=== PATIENT | female | born 1935 | race Caucasian/White ===

== ENCOUNTER 2019-05-13 15:38 | Outpatient (CLI) | payer MEDICARE, SELFPAY ==
[2019-05-13 15:57] LABS: Basophils Absolute Auto 0.03 K/mm3 (0.00-0.10); Basophils Percent Auto 0.3 % (0.0-1.0); Eosinophils Absolute Auto 0.32 K/mm3 (0.02-0.50); Eosinophils Percent Auto 3.4 % (1.0-6.0); Hematocrit 44.4 % (35.0-42.0); Hemoglobin 14.3 g/dL (11.7-13.8); Immature Granulocyte Absolute 0.03 K/mm3 (0.00-0.00); Immature Granulocyte Percent A 0.3 % (0.0-0.0); Lymphocytes Absolute Auto 2.03 K/mm3 (1.10-4.50); Lymphocytes Percent Auto 21.8 % (18.0-42.0); Mean Corpuscular HGB Conc 32.2 g/dL (32.0-36.0); Mean Corpuscular Hemoglobin 30.4 pg (27.0-31.0); Mean Corpuscular Volume 94.5 fL (78.0-102.0); Mean Platelet Volume 10.2 fl (9.2-11.8); Monocytes Absolute Auto 0.84 K/mm3 (0.10-0.90); Neutrophils Absolute Auto 6.1 K/mm3 (1.7-7.2); Neutrophils Percent Auto 65.2 % (50.0-70.0); Platelet Count Result 191 K/mm3 (150-420); Red Cell Distribution Width 14.1 % (11.6-14.4); White Blood Count 9.3 K/mm3 (4.8-10.8)
[2019-05-13 16:51] LABS: Ferritin 93 ng/mL (8-252); Iron 46 ug/dL (50-170); Percent Iron Saturation 13 % (12-57)
== END 2019-05-13 15:39 | disposition home or self-care (01) ==
LOC: CHSLAB 15:44
PROVIDERS: PCP Internal Medicine; Visit Provider Internal Medicine
DX: D50.9 Iron deficiency anemia, unspecified (principal)
CPT/HCPCS: 36415; 82728; 83540; 83550; 85025

== ENCOUNTER 2019-06-30 08:17 | Outpatient (CLI) | payer MEDICARE, SELFPAY ==
[2019-06-30 08:34] LABS: Basophils Absolute Auto 0.05 K/mm3 (0.00-0.10); Basophils Percent Auto 0.6 % (0.0-1.0); Eosinophils Absolute Auto 0.24 K/mm3 (0.02-0.50); Eosinophils Percent Auto 2.9 % (1.0-6.0); Hematocrit 47.6 % (35.0-42.0); Hemoglobin 15.4 g/dL (11.7-13.8); Immature Granulocyte Absolute 0.03 K/mm3 (0.00-0.00); Immature Granulocyte Percent A 0.4 % (0.0-0.0); Lymphocytes Absolute Auto 1.53 K/mm3 (1.10-4.50); Lymphocytes Percent Auto 18.3 % (18.0-42.0); Mean Corpuscular HGB Conc 32.4 g/dL (32.0-36.0); Mean Corpuscular Hemoglobin 30.7 pg (27.0-31.0); Mean Corpuscular Volume 94.8 fL (78.0-102.0); Mean Platelet Volume 10.2 fl (9.2-11.8); Monocytes Absolute Auto 0.84 K/mm3 (0.10-0.90); Neutrophils Absolute Auto 5.7 K/mm3 (1.7-7.2); Neutrophils Percent Auto 67.8 % (50.0-70.0); Platelet Count Result 182 K/mm3 (150-420); Red Blood Count 5.02 M/mm3 (4.20-5.40); White Blood Count 8.4 K/mm3 (4.8-10.8)
[2019-06-30 08:37] LABS: Add Urine Microscopic? YES; Appearance Urine Clear (Clear); Bilirubin Urine Negative (Negative); Blood Urine 2+ (Negative); Color Urine Yellow (Yellow); Glucose Urine UA Negative (Negative); Ketones Urine Negative (Negative); Leukocyte Esterase Ur Trace (Negative); Nitrate Urine Negative (Negative); Protein Urine Negative (Negative); Specific Grav Ur 1.015 (1.010-1.020); Urobilinogen Urine 0.2 mg/dL (0.2-1.0)
[2019-06-30 08:45] LABS: Hemoglobin A1C 5.7 % (<5.7)
[2019-06-30 08:48] LABS: Bacteria Urine 1+ /hpf; Squamous Epithelial Cell Urine Few /hpf (Few); WBC Urine 0-3 /hpf (0-3)
[2019-06-30 09:33] LABS: Alanine Aminotransferase 23 U/L (14-59); Albumin Level 3.9 g/dL (3.4-5.0); Alkaline Phosphatase 101 U/L (46-116); Aspartate Amino Transferase 20 U/L (15-37); Bilirubin,Total 0.7 mg/dL (0.00-1.00); Blood Urea Nitrogen 12 mg/dL (7-18); Calcium 9.7 mg/dL (8.5-10.1); Carbon Dioxide 35 mmol/L (21-32); Chloride 102 mmol/L (98-108); Cholesterol 185 mg/dL (0-200); Estimated Glomerular Filt Rate > 60; Free T3 2.56 pg/mL (2.18-3.98); Free T4 Free Thyroxine 1.43 ng/dL (0.76-1.46); Glucose 88 mg/dL (70-99); HDL Direct 46 mg/dL (40-60); LDL Cholesterol Calculated 120 mg/dL (<130); Osmolality Calculated 298 mOsm/kg (285-295); Sodium 145 mmol/L (136-145); Thyroid Stimulating Hormone 3.03 uIU/mL (0.36-3.74); Total Protein 6.9 g/dL (6.4-8.2); Triglycerides 94 mg/dL (0-150)
== END 2019-06-30 08:18 | disposition home or self-care (01) ==
LOC: CHSLAB 08:20
PROVIDERS: PCP Internal Medicine; Visit Provider Internal Medicine
DX: E03.4 Atrophy of thyroid (acquired) (principal); I10 Essential (primary) hypertension; E78.2 Mixed hyperlipidemia; R73.01 Impaired fasting glucose; E61.1 Iron deficiency
CPT/HCPCS: 36415; 80053; 80061; 81001; 83036; 84439; 84443; 84481; 85025

== ENCOUNTER 2019-07-06 08:10 | Outpatient (CLI) | payer MEDICARE, SELFPAY ==
--- NOTE | ~2019-07-06 | US_ITS ---
US retroperitoneal comp 07/06/2019 09:02 Procedure: Realtime transabdominal ultrasound of the kidneys and bladder. Indication: Hematuria Comparison: CT dated 07/21/2014 Findings: Renal echotexture is normal bilaterally without hydronephrosis, contour deforming mass. The re are echogenic foci in both kidneys, likely nonobstructing renal stones. There are bilateral renal cysts, largest on the right measuring 8 mm and on the left measuring 1.3 cm. The right kidney measure s 9.3 cm and left kidney measures 10.9 cm. Bladder within normal limits. Impression: 1: Bilateral echogenic foci without hydronephrosis, likely nonobstructing stones. 2: Bilateral renal cysts. Reviewed, dictated and finalized at location A. Impression: 1: Bilateral echogenic foci without hydronephrosis, likely nonobstructing stone s. 2: Bilateral renal cysts.
== END 2019-07-06 08:11 | disposition home or self-care (01) ==
PROVIDERS: PCP Internal Medicine; Visit Provider Internal Medicine
DX: R31.9 Hematuria, unspecified (principal)
CPT/HCPCS: 76770

== ENCOUNTER 2019-12-30 07:48 | Outpatient (CLI) | payer MEDICARE, SELFPAY ==
[2019-12-30 08:06] LABS: Basophils Absolute Auto 0.03 K/mm3 (0.00-0.10); Basophils Percent Auto 0.4 % (0.0-1.0); Eosinophils Absolute Auto 0.26 K/mm3 (0.02-0.50); Eosinophils Percent Auto 3.5 % (1.0-6.0); Hematocrit 46.9 % (35.0-42.0); Immature Granulocyte Absolute 0.03 K/mm3 (0.00-0.00); Immature Granulocyte Percent A 0.4 % (0.0-0.0); Lymphocytes Percent Auto 20.1 % (18.0-42.0); Mean Corpuscular Hemoglobin 30.4 pg (27.0-31.0); Mean Corpuscular Volume 94.9 fL (78.0-102.0); Mean Platelet Volume 9.8 fl (9.2-11.8); Monocytes Absolute Auto 0.67 K/mm3 (0.10-0.90); Neutrophils Percent Auto 66.6 % (50.0-70.0); Platelet Count Result 187 K/mm3 (150-420); Red Blood Count 4.94 M/mm3 (4.20-5.40); Red Cell Distribution Width 13.4 % (11.6-14.4); White Blood Count 7.5 K/mm3 (4.8-10.8)
[2019-12-30 08:07] LABS: Add Urine Microscopic? YES; Appearance Urine Clear (Clear); Bilirubin Urine Negative (Negative); Blood Urine Negative (Negative); Color Urine Yellow (Yellow); Glucose Urine UA Negative (Negative); Ketones Urine Negative (Negative); Leukocyte Esterase Ur Trace LEU/UL (Negative); Nitrate Urine Negative (Negative); Protein Urine Negative (Negative); Urobilinogen Urine 0.2 mg/dL (0.2-1.0); pH Urine 7.5 (5.0-8.0)
[2019-12-30 08:11] LABS: Bacteria Urine Trace /hpf; RBC Urine 0-2 /hpf (0-2); Squamous Epithelial Cell Urine Few /hpf (Few); WBC Urine 0-3 /hpf (0-3)
[2019-12-30 08:25] LABS: Creatinine Urine 42.07 mg/dL (40-278); MALB Creatinine Ratio 54.9 mg/g (0-30); Microalbumin Urine Random 23.1 mg/L
[2019-12-30 08:44] LABS: Hemoglobin A1C 5.7 % (<5.7)
[2019-12-30 08:57] LABS: Alanine Aminotransferase 26 U/L (14-59); Albumin Level 3.9 g/dL (3.4-5.0); Alkaline Phosphatase 110 U/L (46-116); Anion Gap 7 mmol/L (8-16); Aspartate Amino Transferase 30 U/L (15-37); Bilirubin,Total 0.5 mg/dL (0.00-1.00); Blood Urea Nitrogen 14 mg/dL (7-18); Calcium 9.6 mg/dL (8.5-10.1); Carbon Dioxide 33 mmol/L (21-32); Chloride 101 mmol/L (98-108); Cholesterol 199 mg/dL (0-200); Creatine Kinase 82 U/L (26-192); Estimated Glomerular Filt Rate > 60; Ferritin 96 ng/mL (8-252); Free T3 2.31 pg/mL (2.18-3.98); Free T4 Free Thyroxine 1.15 ng/dL (0.76-1.46); Glucose 91 mg/dL (70-99); HDL Direct 50 mg/dL (40-60); Iron 157 ug/dL (50-170); LDL Cholesterol Calculated 126 mg/dL (<130); Osmolality Calculated 292 mOsm/kg (285-295); Percent Iron Saturation 44 % (12-57); Potassium 3.9 mmol/L (3.5-5.1); Sodium 141 mmol/L (136-145); Thyroid Stimulating Hormone 3.73 uIU/mL (0.36-3.74); Total Protein 7.2 g/dL (6.4-8.2); Triglycerides 116 mg/dL (0-150)
== END 2019-12-30 07:49 | disposition home or self-care (01) ==
LOC: CHSLAB 07:49
PROVIDERS: PCP Internal Medicine; Visit Provider Internal Medicine
DX: E78.5 Hyperlipidemia, unspecified (principal); I10 Essential (primary) hypertension; R73.01 Impaired fasting glucose; E03.4 Atrophy of thyroid (acquired); E61.1 Iron deficiency; R31.21 Asymptomatic microscopic hematuria
CPT/HCPCS: 36415; 80053; 80061; 81001; 82043; 82550; 82728; 83036; 83540; 83550; 84439; 84443; 84481; 85025

== ENCOUNTER 2020-03-20 15:36 | Outpatient (CLI) | payer MEDICARE, SELFPAY ==
--- NOTE | ~2020-03-20 | XR_ITS ---
EXAMINATION: XR foot LT min 3V DATE: 03/20/2020 16:04 INDICATION: Left foot pain post injury TECHNIQUE: Dorsoplantar, two oblique and lateral views of the left foot were obtained. COMPARISON: None. FINDINGS: 1-2 mm wide lucent intra-articular fracture plane extending across the lateral base of the fifth meta tarsal with no significant displacement. No other fractures identified. Interval progression of moder ate hallux valgus. Polyarticular osteoarthritis, moderate severity at the second tarsal metatarsal onel int and mild at many of the remaining joints about the left foot and at the left ankle. IMPRESSION: 1. Minimally displaced intra-articular fracture at the lateral base of the left fifth metatarsal Reviewed, dictated and finalized at location A. ING MACHINE OPERATOR
== END 2020-03-20 15:37 | disposition home or self-care (01) ==
LOC: CHSLAB 15:40
PROVIDERS: PCP Internal Medicine; Visit Provider Internal Medicine
DX: M79.672 Pain in left foot (principal)
CPT/HCPCS: 73630

== ENCOUNTER 2020-04-18 09:22 | Outpatient (CLI) | payer MEDICARE, SELFPAY ==
--- NOTE | ~2020-04-18 | XR_ITS ---
EXAMINATION: XR foot LT min 3V DATE: 04/18/2020 09:58 INDICATION: Left foot pain, follow-up TECHNIQUE: Dorsoplantar, lateral, and 2 oblique views of the left foot were obtained. COMPARISON: 03/20/2020 FINDINGS: Again seen is an oblique intra-articular fracture at the lateral base of the fifth metatars al. There appears to be slight widening at the fracture site compared to the prior examination. A sma ll amount of calcified callus has developed at the fracture site. No additional acute osseous finding s are evident. Polyarticular osteoarthritis is again noted. There is soft tissue swelling of the late ral midfoot. IMPRESSION: 1. Oblique intra-articular fracture at the lateral base of the fifth metatarsal with slight interval widening at the fracture site and small amount of calcified callus. Reviewed, dictated and finalized at location A. CY CHECKER IMPRESSION: 1. Oblique intra-articular fracture at the lateral base of the fifth metatarsal with slight interval widening at the fracture site and small amount of calcifi ed callus.
== END 2020-04-18 09:23 | disposition home or self-care (01) ==
LOC: CHSIMG 09:25
PROVIDERS: PCP Internal Medicine; Visit Provider Internal Medicine
DX: S92.355D Nondisplaced fracture of fifth metatarsal bone, left foot, subsequent encounter for fracture with routine healing (principal)
CPT/HCPCS: 73630

== ENCOUNTER 2020-05-30 12:20 | Outpatient (CLI) | payer MEDICARE, SELFPAY ==
--- NOTE | ~2020-05-30 | XR_ITS ---
XR foot LT min 3V DATE: 05/30/2020 12:48 INDICATION: Fifth metatarsal fracture TECHNIQUE: 4 views COMPARISON: April 18, 2020 left foot March 20, 2020 left foot FINDINGS: Oblique intra-articular fracture of the base of the fifth metatarsal bone is noted. There i s mild widening at the nonarticular fracture margin; otherwise no significant change in position or a lignment. The fracture line is still readily evident. No effective bony bridging across the fracture site is identified. Hallux valgus and bunion deformity. Mild osteoarthritis at the first metatarsophalangeal joint. Osteopenia. IMPRESSION: Slight widening at the fracture site with limited new bone formation or significant heali ng since prior examination Reviewed, dictated and finalized at location B. IMPRESSION: Slight widening at the fracture site with limited new bone formatio n or significant healing since prior examination
== END 2020-05-30 12:21 | disposition home or self-care (01) ==
PROVIDERS: PCP Internal Medicine; Visit Provider Internal Medicine
DX: S92.352D Displaced fracture of fifth metatarsal bone, left foot, subsequent encounter for fracture with routine healing (principal)
CPT/HCPCS: 73630

== ENCOUNTER 2020-06-29 07:13 | Outpatient (CLI) | payer MEDICARE, SELFPAY ==
[2020-06-29 07:30] LABS: Basophils Absolute Auto 0.04 K/mm3 (0.00-0.10); Basophils Percent Auto 0.7 % (0.0-1.0); Eosinophils Percent Auto 3.4 % (1.0-6.0); Hematocrit 45.4 % (35.0-42.0); Hemoglobin 14.5 g/dL (11.7-13.8); Immature Granulocyte Absolute 0.02 K/mm3 (0.00-0.00); Immature Granulocyte Percent A 0.3 % (0.0-0.0); Lymphocytes Absolute Auto 1.12 K/mm3 (1.10-4.50); Lymphocytes Percent Auto 18.8 % (18.0-42.0); Mean Corpuscular HGB Conc 31.9 g/dL (32.0-36.0); Mean Corpuscular Hemoglobin 29.6 pg (27.0-31.0); Mean Corpuscular Volume 92.7 fL (78.0-102.0); Mean Platelet Volume 10.4 fl (9.2-11.8); Monocytes Percent Auto 8.4 % (2.0-11.0); Neutrophils Absolute Auto 4.1 K/mm3 (1.7-7.2); Neutrophils Percent Auto 68.4 % (50.0-70.0); Platelet Count Result 174 K/mm3 (150-420); Red Cell Distribution Width 13.4 % (11.6-14.4)
[2020-06-29 07:35] LABS: Add Urine Microscopic? YES; Appearance Urine Clear (Clear); Bilirubin Urine Negative (Negative); Blood Urine Negative (Negative); Color Urine Yellow (Yellow); Glucose Urine UA Negative (Negative); Ketones Urine Negative (Negative); Leukocyte Esterase Ur 1+ (Negative); Nitrate Urine Negative (Negative); Protein Urine Negative (Negative); Urobilinogen Urine 0.2 mg/dL (0.2-1.0)
[2020-06-29 07:46] LABS: Creatinine Urine 76.11 mg/dL (40-278); MALB Creatinine Ratio 73.9 mg/g (0-30); Microalbumin Urine Random 56.3 mg/L
[2020-06-29 07:47] LABS: Bacteria Urine Trace /hpf; RBC Urine None seen /hpf (0-2); Squamous Epithelial Cell Urine Few /hpf (Few)
[2020-06-29 07:49] LABS: Hemoglobin A1C 5.9 % (<5.7)
[2020-06-29 08:27] LABS: Alanine Aminotransferase 23 U/L (14-59); Albumin Level 3.7 g/dL (3.4-5.0); Alkaline Phosphatase 110 U/L (46-116); Anion Gap 6 mmol/L (8-16); Aspartate Amino Transferase 15 U/L (15-37); Bilirubin,Total 0.7 mg/dL (0.00-1.00); Blood Urea Nitrogen 13 mg/dL (7-18); Calcium 9.7 mg/dL (8.5-10.1); Carbon Dioxide 34 mmol/L (21-32); Chloride 103 mmol/L (98-108); Cholesterol 162 mg/dL (0-200); Creatine Kinase 74 U/L (26-192); Estimated Glomerular Filt Rate > 60; Ferritin 82 ng/mL (8-252); Free T3 2.27 pg/mL (2.18-3.98); Free T4 Free Thyroxine 1.27 ng/dL (0.76-1.46); Glucose 97 mg/dL (70-99); HDL Direct 46 mg/dL (40-60); Iron 77 ug/dL (50-170); LDL Cholesterol Calculated 101 mg/dL (<130); Osmolality Calculated 296 mOsm/kg (285-295); Percent Iron Saturation 22 % (12-57); Potassium 3.7 mmol/L (3.5-5.1); Sodium 143 mmol/L (136-145); Thyroid Stimulating Hormone 3.04 uIU/mL (0.36-3.74); Total Protein 6.9 g/dL (6.4-8.2); Triglycerides 76 mg/dL (0-150)
== END 2020-06-29 07:14 | disposition home or self-care (01) ==
LOC: CHSLAB 07:15
PROVIDERS: PCP Internal Medicine; Visit Provider Internal Medicine
DX: E03.4 Atrophy of thyroid (acquired) (principal); I10 Essential (primary) hypertension; E78.2 Mixed hyperlipidemia; E61.1 Iron deficiency; R73.01 Impaired fasting glucose
CPT/HCPCS: 36415; 80053; 80061; 81001; 82043; 82550; 82728; 83036; 83540; 83550; 84439; 84443; 84481; 85025

== ENCOUNTER 2020-07-04 13:47 | Outpatient (CLI) | payer MEDICARE, SELFPAY ==
--- NOTE | ~2020-07-04 | XR_ITS ---
EXAMINATION: XR foot LT min 3V DATE: 07/04/2020 14:15 INDICATION: Follow-up left foot fracture post fall TECHNIQUE: Dorsoplantar, two oblique and lateral views of the left foot were obtained. COMPARISON: Radiographs dated between 05/30/2020 and 03/20/2020 FINDINGS: Again seen is an intra-articular fracture at the lateral base of the left fifth metatarsal. Unchanged mild distraction with approximately 3 mm lucent fracture gap. There is however decreasing lucency al aleksandar the fracture gap consistent with interval healing. No other fractures identified. Mild hallux loly josh with mild to moderate osteoarthritis at the first metatarsophalangeal joint. Mild osteoarthritis at several tarsal metatarsal and interphalangeal joints. Osteopenia. IMPRESSION: 1. Decreasing lucency along a minimally distracted intra-articular fracture at the lateral base of th e left fifth metatarsal suggesting some interval healing. Reviewed, dictated and finalized at location A. IMPRESSION: 1. Decreasing lucency along a minimally distracted intra-articular fracture at the lateral base of the left fifth metatarsal suggesting some interval healing.
== END 2020-07-04 13:48 | disposition home or self-care (01) ==
LOC: CHSIMG 13:49
PROVIDERS: PCP Internal Medicine; Visit Provider Internal Medicine
DX: S92.355D Nondisplaced fracture of fifth metatarsal bone, left foot, subsequent encounter for fracture with routine healing (principal)
CPT/HCPCS: 73630

== ENCOUNTER 2020-08-30 07:32 | Outpatient (CLI) | payer MEDICARE, SELFPAY ==
--- NOTE | ~2020-08-30 | CT_ITS ---
EXAMINATION: CT abdomen pelvis w con INDICATION: Abdominal pain, hematuria TECHNIQUE: Computed tomographic images of the abdomen and pelvis were obtained after the administrati on of 100 cc of Omnipaque 350 intravenous contrast. The dose-length product (DLP) was 760.19 mGy-cm. Automated exposure control and iterative reconstruction technique were employed. COMPARISON: 07/21/2014 FINDINGS: Minimal dependent atelectasis is present in the lung bases. Cardiomegaly is noted. The live r, spleen, and pancreas are normal. There is mild chronic thickening of the adrenal glands which main tain their adreniform shape. Stones are present in the nondistended gallbladder. Stones measuring 6 m m and 7 mm are present left renal pelvis. There are stones measuring up to 6 mm and lower pole calyce s of the right kidney. Multiple nonobstructing stones are present in the kidneys which measure up to 4 mm on the remaining and 5 mm on the left. Cysts of the kidneys measure up to 8 mm on the left. Ther e are soft tissue attenuation lesions of the kidneys in the lower pole on the right (10 mm) the upper pole on the left (13 mm), and the interpolar region of the left kidney (19 mm). There is calcified a therosclerosis of the aorta and many of the other arteries. No pathologically enlarged abdominal or p elvic lymph nodes are identified. There is no free intraperitoneal gas or evidence of bowel obstructi on. There is severe lumbar spondylosis. A calcified uterine fibroid is noted. IMPRESSION: 1. Stones in the left renal pelvis and lower pole calyces of the right kidney. Bilateral nephrolithia sis. 2. Bilateral indeterminate kidney masses. Follow-up by MRI or CT without and with contrast is recomme nded. 3. Cholelithiasis without evidence of cholecystitis. Reviewed, dictated and finalized at location A. IMPRESSION: 1. Stones in the left renal pelvis and lower pole calyces of the right kidney. Bilateral nephrolithiasis. 2. Bilateral indeterminate kidney masses. Follow-up by MRI or CT without and wi th contrast is recommended. 3. Cholelithiasis without evidence of cholecystitis.
[2020-08-30 08:00] LABS: Estimated Glomerular Filt Rate > 60
== END 2020-08-30 07:33 | disposition home or self-care (01) ==
LOC: CHSIMG 07:33
PROVIDERS: PCP Internal Medicine; Visit Provider Nurse Practitioner Family
DX: R31.9 Hematuria, unspecified (principal); R10.9 Unspecified abdominal pain
CPT/HCPCS: 74177; Q9967

== ENCOUNTER 2020-10-30 10:45 | Outpatient (CLI) | payer MEDICARE, SELFPAY ==
--- NOTE | ~2020-10-30 | XR_ITS ---
EXAMINATION: XR hand LT min 3V, XR wrist LT min 3V DATE: 10/30/2020 11:12 INDICATION: Left hand and wrist pain post fall TECHNIQUE: 1. Posteroanterior, ulnar deviation, oblique, and lateral views of the left wrist were obtained. 2. Dorsal palmar, oblique and lateral views of the left hand were obtained. COMPARISON: None. FINDINGS: Mildly comminuted intra-articular fracture at the distal left radius. There is mild impaction of port ions of the articular surface. 1.5 mm step-off and 1.5 mm lucent fracture gap at the articular surfac e at the scaphoid fossa. Alignment remains near-anatomic. Nondisplaced chronic nonunited fracture of the ulnar styloid process with corticated margins. No other acute fractures identified. Polyarticular osteoarthritis, severe at the first carpal metacarpal joint, moderate severity at the wrist, fourth proximal and fourth and fifth distal interphalangeal joints and mild at the triscaphe, all of the met acarpophalangeal and remaining interphalangeal joints. Subarticular lucency at the ulnar side of the proximal articular surface of the lunate which may be related to ulnocarpal impaction. Chondrocalcino sis at the triangular fibrocartilage complex. Diffuse osteopenia. IMPRESSION: 1. Mild impaction of a comminuted intra-articular fracture of the distal left radius. 2. Polyarticular osteoarthritis as detailed above, severe at the first carpometacarpal joint. 3. 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 4. Cystic change at the ulnar side of the proximal lunate suggesting chronic ulnocarpal impaction. Reviewed, dictated and finalized at location B. IMPRESSION: 1. Mild impaction of a comminuted intra-articular fracture of the distal left r adius. 2. Polyarticular osteoarthritis as detailed above, severe at the first carpomet acarpal joint. 3. 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 4. Cystic change at the ulnar side of the proximal lunate suggesting chronic ul nocarpal impaction.
== END 2020-10-30 10:46 | disposition home or self-care (01) ==
LOC: CHSIMG 10:48
PROVIDERS: PCP Internal Medicine; Visit Provider Nurse Practitioner Family
DX: M79.642 Pain in left hand (principal); M25.532 Pain in left wrist
CPT/HCPCS: 73110; 73130

== ENCOUNTER 2020-11-16 13:00 | Outpatient (CLI) | payer MEDICARE, SELFPAY ==
--- NOTE | ~2020-11-16 | XR_ITS ---
EXAMINATION: XR wrist LT min 3V DATE: 11/16/2020 13:23 INDICATION: Left wrist fracture follow-up TECHNIQUE: Posteroanterior, ulnar deviation, oblique, and lateral views of the left wrist were obtain ed. COMPARISON: 10/30/2020 FINDINGS: Again seen is a comminuted intra-articular fracture at the distal radius. Alignment is claudio sly unchanged. A cast has been applied which obscures fine osseous detail. No definite additional acu te osseous abnormality is identified. There is a chronic nonunited fracture of the ulnar styloid. Mod erate osteoarthritis of the first carpometacarpal joint. IMPRESSION: 1. Casted, comminuted intra-articular fracture of the distal radius without significant change. Reviewed, dictated and finalized at location B. IMPRESSION: 1. Casted, comminuted intra-articular fracture of the distal radius without sig nificant change.
== END 2020-11-16 13:01 | disposition home or self-care (01) ==
LOC: CHSIMG 13:03
PROVIDERS: PCP Internal Medicine; Visit Provider Internal Medicine
DX: S62.102D Fracture of unspecified carpal bone, left wrist, subsequent encounter for fracture with routine healing (principal)
CPT/HCPCS: 73110

== ENCOUNTER 2020-12-14 12:17 | Outpatient (CLI) | payer MEDICARE, SELFPAY ==
--- NOTE | ~2020-12-14 | XR_ITS ---
XR forearm LT 2V DATE: 12/14/2020 12:45 INDICATION: Fracture follow-up TECHNIQUE: AP and lateral views COMPARISON: 11/16/2020 left wrist FINDINGS: There is a fiberglass cast of the forearm, providing external fixation for a comminuted int ra-articular fracture of the distal radius, which is in near anatomic position and alignment, without significant change in position compared to 11/26/2020. There is suggestion of some sclerosis consiste nt with healing. There is normal antegrade inclination of the distal radial articular surface. Radioc arpal alignment is intact. Diffuse osteopenia. IMPRESSION: Casted comminuted intra-articular fracture of the distal radius without any change in pos ition or alignment since 11/26/2020 Reviewed, dictated and finalized at location A. IMPRESSION: Casted comminuted intra-articular fracture of the distal radius wit hout any change in position or alignment since 11/26/2020
== END 2020-12-14 12:18 | disposition home or self-care (01) ==
PROVIDERS: PCP Internal Medicine; Visit Provider Internal Medicine
DX: S52.572D Other intraarticular fracture of lower end of left radius, subsequent encounter for closed fracture with routine healing (principal)
CPT/HCPCS: 73090

== ENCOUNTER 2020-12-28 11:06 | Outpatient (CLI) | payer MEDICARE, SELFPAY ==
--- NOTE | ~2020-12-28 | CT_ITS ---
EXAMINATION: CT brain wo con DATE: 12/28/2020 11:34 INDICATION: Status post fall. Confusion. TECHNIQUE: Computed tomography (CT) of the head was performed without intravenous contrast. The dose- length product was 605.33 mGy-cm. Automated exposure control and iterative reconstruction technique w ere employed. COMPARISON: None FINDINGS: There is left frontal scalp hematoma. No acute intracranial hemorrhage, infarction, mass or mass effect. No ventriculomegaly or midline shift. Mild generalized atrophy. There are scattered mil d periventricular and subcortical white matter changes, most likely related to small vessel ischemic disease (microangiopathy). No depressed skull fractures. Paranasal sinuses and mastoids are pneumatiz ed. IMPRESSION: 1. No acute intracranial abnormality. 2: Chronic age-related findings. Reviewed, dictated and finalized at location B.
--- NOTE | ~2020-12-28 | XR_ITS ---
[XR ribs LT 2V w CXR 2V ] INDICATION: Left chest wall pain after recent fall TECHNIQUE: Frontal projection of the upper left ribs, frontal projection of the lower left ribs, obli que projection of all the left ribs, frontal inspiratory chest x-ray for interpretation. FINDINGS: There is a new nodular density left mid thorax. Follow-up CT chest recommended. There is at herosclerosis and ectasia of the aorta. There are no acute displaced rib fractures identified. There are no soft tissue abnormality seen. There are multiple healed right rib fractures. There are advanced degenerative changes of the shoulde rs. IMPRESSION: 1:No acute displaced rib fractures. 2: New nodular density left mid thorax. Follow-up CT chest recommended to exclude parenchymal mass. Reviewed, dictated and finalized at location B. IMPRESSION: 1:No acute displaced rib fractures. 2: New nodular density left mid thorax. Follow-up CT chest recommended to exclu de parenchymal mass.
== END 2020-12-28 11:07 | disposition home or self-care (01) ==
LOC: CHSIMG 11:08
PROVIDERS: PCP Internal Medicine; Visit Provider Internal Medicine
DX: S09.90XA Unspecified injury of head, initial encounter (principal); S06.0X9A Concussion with loss of consciousness of unspecified duration, initial encounter; S29.9XXA Unspecified injury of thorax, initial encounter
CPT/HCPCS: 70450; 71046; 71100

== ENCOUNTER 2021-01-02 08:06 | Outpatient (CLI) | payer MEDICARE, SELFPAY ==
--- NOTE | ~2021-01-02 | CT_ITS ---
EXAMINATION:CT diagnostic chest w con DATE: 01/02/2021 09:30 INDICATION: Left lung nodule. TECHNIQUE: Computed tomography (CT) of the chest was performed with 100 mL Omnipaque 350 intravenous contrast. Automated exposure control and iterative reconstruction technique were employed. The dose-l ength product (DLP) was 391.43 mGy-cm. COMPARISON: Chest CT 05/02/2017 FINDINGS: There is mild scarring at the lung apices. There is mild emphysema. There is mild atelectas is bilaterally. There is a 10 mm nodule in left lung upper lobe that was a 7 mm groundglass opacity o n the prior CT. There is a trace left pleural effusion. Cardiomegaly is noted. No pericardial effusio n. There are stones in the kidneys measuring up to 10 mm on the left. There are cysts in the kidneys measuring up to 8 mm on the left. There is a dissecting aneurysm of descending thoracic aorta measuri ng up to 4.9 cm. The aorta measures 3.1 cm at the celiac axis. There is severe thoracic spondylosis. Thoracic dextro scoliosis is noted. There is advanced osteoarthritis of the glenohumeral joints. Ther e are fractures of left third-fifth ribs. IMPRESSION: 1. Worsened 10 mm left upper lobe pulmonary nodule suspicious for primary bronchogenic carcinoma. CT- guided biopsy is recommended. 2. Mild emphysema. 3. Acute fractures of left third-fifth ribs. 4. 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 Reviewed, dictated and finalized at location A. IMPRESSION: 1. Worsened 10 mm left upper lobe pulmonary nodule suspicious for primary bronc hogenic carcinoma. CT-guided biopsy is recommended. 2. Mild emphysema. 3. Acute fractures of left third-fifth ribs. 4. 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
[2021-01-02 08:39] LABS: Estimated Glomerular Filt Rate > 60
== END 2021-01-02 08:07 | disposition home or self-care (01) ==
LOC: CHSIMG 08:07
PROVIDERS: PCP Internal Medicine; Visit Provider Internal Medicine
DX: R91.1 Solitary pulmonary nodule (principal)
CPT/HCPCS: 71260; Q9967

== ENCOUNTER 2021-01-29 14:07 | Outpatient (CLI) | payer MEDICARE, SELFPAY ==
--- NOTE | ~2021-01-29 | XR_ITS ---
EXAMINATION: XR wrist LT min 3V DATE: 01/29/2021 14:35 INDICATION: Distal left radius fracture. Follow-up. TECHNIQUE: 4 views of left wrist were obtained. COMPARISON: Left forearm radiograph 12/14/2020, left wrist radiographs 10/30/2020 FINDINGS: There is a healed fracture deformity of distal radius. The distal articular surface demonst rates neutral tilt. There is an old avulsion fracture of ulnar styloid with nonunion. There is modera te osteoarthritis of radiocarpal joint, mild osteoarthritis of triscaphe joint, and moderate osteoart hrosis of first carpometacarpal joint. IMPRESSION: 1. Healed fracture deformity of radius. 2. Polyarticular osteoarthritis. Reviewed, dictated and finalized at location B. THERAPY SPECIALIST
== END 2021-01-29 14:08 | disposition home or self-care (01) ==
LOC: CHSIMG 14:09
PROVIDERS: PCP Internal Medicine; Visit Provider Internal Medicine
DX: S62.102D Fracture of unspecified carpal bone, left wrist, subsequent encounter for fracture with routine healing (principal)
CPT/HCPCS: 73110

== ENCOUNTER 2021-02-07 13:17 | Outpatient (RCR) | payer MEDICARE, SELFPAY ==
--- NOTE | 2021-02-07 14:38 | OTOPEVAL ---
Thank you for referring Vivien Green to [facility] [place].? The patient is scheduled to be seen for therapy? ____x/week for ___ weeks. Please review, sign, date and return this plan of care LYNDSAY. I agree with and certify that the following plan of care is medically necessary. Referring Physician Date Admitting Provider: Attending Provider: Liseth Donaldson MD Referring Provider: *OT Outpatient Evaluation Start: 02/07/21 13:19 Freq: Status: Active Protocol: Document 02/07/21 13:19 [facility] [place] (Rec: 02/07/21 14:38 [facility] [place] [id number]) Therapy Assessment Status Assessment Status Assessment Status Evaluation Evaluation Information Problem Diagnosis decreased ROM Onset 10/30/20 Cause L distal radius fracture Subjective Information Patient reports that she fell Query Text:As Reported By Patient/ down and broke her L wrist. Family Patient reports that she just came out of the cast last week . Patient reports that her L wrist is painful and it is difficult to hold onto things. She also reports that it is difficult to perform cooking and cleaning. QuickDASH: 70.5 % Prior Level of Function Activity Level (Last 3 Months) Occupation retired Hand Dominance Right Activity of Daily Living Ability Independent Indoor/Home Mobility Independent Community Mobility Independent Stairs Ability Independent Functional Cognition (Planning, Shopping Independent , Taking Medications) Cooking Yes Cleaning Yes Laundry Yes Driving No Home Setting Home Type Apartment Environmental Barriers Stairs, None Living Situation Alone Support Available Local Family Support Mobility Assistive Devices (Used Last 3 None Months) Pain Assessment Timing of Pain Assessment Timing of Pain Assessment Assessment Pain Scale Pain Scale Used Numeric (1 - 10) Self Report Pain Assessment Left Thumb(s) Reported Pain Level 5 Pain Score Pain Score 5: Self Report Interventions Used Interventions Used By Clinicians Electrical Stimulation,Heat, Manual Therapy Techniques Upper Extremity Range of Motion General Upper Extremity Range of Motion Reason Not Measured WFL/Left,WFL/Right Gross Upper Extremity Range of Motion limited AROM in B shoulders.
--- NOTE | 2021-03-16 11:58 | OTOPEVAL ---
Thank you for referring Vivien Green to [facility].? The patient is scheduled to be seen for therapy? ____x/week for ___ weeks. Please review, sign, date and return this plan of care LYNDSAY. I agree with and certify that the following plan of care is medically necessary. Referring Physician Date Admitting Provider: Attending Provider: Liseth Donaldson MD Referring Provider: *OT Outpatient Evaluation Start: 02/07/21 13:19 Freq: Status: Active Protocol: Document 03/16/21 11:01 [facility] [place] (Rec: 03/16/21 11:54 [facility] [place] [id number]) Therapy Assessment Status Assessment Status Assessment Status Discharge Pain Assessment Timing of Pain Assessment Timing of Pain Assessment Re-assessment Pain Scale Pain Scale Used Numeric (1 - 10) Self Report Pain Assessment Left Elbow(s) Reported Pain Level 0 Left Wrist(s) Reported Pain Level 0 Left Thumb(s) Reported Pain Level 4 Pain Score Pain Score 0,0,4: Self Report Interventions Used Interventions Used By Clinicians Electrical Stimulation,Heat Upper Extremity Range of Motion Wrist Range of Motion Left Wrist Flexion - Active 30 Wrist Extension - Active 40 Hand Supply Officer/Pinch Strength Assessment Hand Left Supply Officer Strength (lbs) 16 Extremity Circumference Assessment Circumference Assessment Circumference Comments L wrist: 19.0 cm General Exercise General Exercises Side Left Exercise Description AROM for L wrist flexion/ Query Text:Record Sets, Reps, extension, 1x20 Resistance, and Position AROM for L wrist radial/ulnar deviation, 1x20 AROM for L forearm supination/ pronation, 1x20 AROM for L thumb flexion/ extension, 1x20 AROM for L thumb circles, 1x20 AROM for L finger flexion/ extension 1x20 AROM for L finger opposition 1x20 L wrist flexion/extension, 2x20 with 1 lb weight L wrist radial/ulnar deviation , 2x20 with 1 lb weight L forearm supination/pronation , 2x20 with 1 lb weight redi digi-flex resisting L finger flexion, 10 reps x 2 sets Manual Therapy Manual Therapy Side Left Patient Position Sitting Treatment Comments IASTM/STM for L wrist, thumb,
== END 2021-03-16 14:19 | disposition home or self-care (01) ==
LOC: CHSPT 13:17
PROVIDERS: PCP Internal Medicine; Visit Provider Internal Medicine
DX: M25.632 Stiffness of left wrist, not elsewhere classified (principal); S52.502D Unspecified fracture of the lower end of left radius, subsequent encounter for closed fracture with routine healing
CPT/HCPCS: 97014; 97110; 97140; 97165; G0283

== ENCOUNTER 2021-02-27 09:05 | Outpatient (CLI) | payer MEDICARE, SELFPAY ==
--- NOTE | ~2021-02-27 | XR_ITS ---
XR wrist LT min 3V DATE: 02/27/2021 09:53 INDICATION: Chronic left wrist injury TECHNIQUE: 4 views COMPARISON: 01/29/2021, 11/16/2020, 10/30/2020 left wrist FINDINGS: There is diffuse osteopenia. There is chronic distal radial intra-articular fracture deformity without interval change in position or alignment since 01/29/2021. There is an old ununited fracture of the ulnar styloid process. Chondrocalcinosis at the triangular cartilage. Polyarticular osteoarthritis, particularly at the first carpometacarpal joint.. IMPRESSION: No significant change since 01/29/2021 Reviewed, dictated and finalized at location B. CAL ONCOLOGIST
== END 2021-02-27 09:06 | disposition home or self-care (01) ==
LOC: CHSLAB 09:08
PROVIDERS: PCP Internal Medicine; Visit Provider Nurse Practitioner Family
DX: M25.532 Pain in left wrist (principal)
CPT/HCPCS: 73110

== ENCOUNTER 2021-07-26 15:33 | Outpatient (CLI) | payer MEDICARE, SELFPAY ==
--- NOTE | ~2021-07-26 | CT_ITS ---
EXAMINATION:CT lung screening DATE: 07/26/2021 15:57 INDICATION: Personal history of tobacco dependence. Smoker who quit 5 years ago with 50 pack year his tory. TECHNIQUE: Computed tomography (CT) of the chest was performed without intravenous contrast. Automate d exposure control and iterative reconstruction technique were employed. The dose-length product (DLP ) was 194.71 mGy-cm. COMPARISON: Chest CT 01/02/2021, 05/02/2017 FINDINGS: There is mild scarring at the lung apices. There are changes of wedge resection in right amanda ng. There is mild emphysema. There is mild atelectasis bilaterally. There is an 11 mm nodule in left upper lobe that measured 10 mm on 01/02/2021. No pleural effusion. Cardiomegaly is noted. No pericard ial effusion. There is a 5.1 cm fusiform aneurysm of descending thoracic aorta. The aortic isthmus an d ascending aorta are normal in caliber. Partially visualized are stones in the kidneys measuring up to 5 mm in the right. There is severe cervical and thoracic spondylosis. IMPRESSION: 1. Lung-RADS category 4B: Very suspicious. CT-guided biopsy is recommended. 2. Stable 5.1 cm fusiform aneurysm of descending thoracic aorta. Reviewed, dictated and finalized at location A.
== END 2021-07-26 15:34 | disposition home or self-care (01) ==
PROVIDERS: PCP Internal Medicine; Visit Provider Internal Medicine
DX: Z12.2 Encounter for screening for malignant neoplasm of respiratory organs (principal); Z87.891 Personal history of nicotine dependence
CPT/HCPCS: 71271

== ENCOUNTER 2021-10-09 14:44 | Outpatient (CLI) | payer MEDICARE, SELFPAY ==
--- NOTE | ~2021-10-09 | XR_ITS ---
XR chest 2V DATE: 10/09/2021 15:52 INDICATION: Cough TECHNIQUE: AP and lateral views COMPARISON: 07/26/2021 CT lung screening FINDINGS: There is approximately 1 cm nodular density at the lateral left mid lung, left upper lobe. Lung cancer is suspected. Biopsy was recommended on 07/26/2021 CT lung screening examination. Cardiomegaly. Aortic calcification, tortuosity and aneurysm. Bilateral apical capping. No pulmonary infiltrate or consolidation, pleural effusion or pulmonary vascular congestion or pneumo thorax is detected. There is osteopenia. There is degenerative change of the thoracic and lumbar spine. Severe osteoarthritic change at the glenohumeral joints. Old healed right rib fractures. Dextroscoliosis and diffuse idiopathic skeletal hyperostosis of the t horacic spine. IMPRESSION: 1 cm left upper lobe lung mass, suspicious for lung cancer Cardiomegaly Aortic aneurysm, calcification, tortuosity No pulmonary infiltrate or consolidation Osteopenia Severe osteoarthritic change at the glenohumeral joints Reviewed, dictated and finalized at location B.
--- NOTE | ~2021-10-09 | XR_ITS ---
XR wrist RT min 3V DATE: 10/09/2021 15:52 INDICATION: Distal radial fracture TECHNIQUE: 4 views COMPARISON: None FINDINGS: Virtually nondisplaced comminuted intra-articular fracture distal radius, with dorsal incli nation of the distal radial articular surface. Fracture at the tip of the ulnar styloid process. Chondrocalcinosis at the triangular cartilage. Osteopenia. Severe osteoarthritic change at the first carpometacarpal joint. There is osteoarthritis at the first and second metacarpophalangeal joints and multiple interphalangeal joints. IMPRESSION: Comminuted intra-articular fracture of the distal radius with dorsal inclination of dista l radial articular surface Fracture of ulnar styloid process Osteopenia Polyarticular osteoarthritis Reviewed, dictated and finalized at location B. IMPRESSION: Comminuted intra-articular fracture of the distal radius with dorsa l inclination of distal radial articular surface Fracture of ulnar styloid process Osteopenia Polyarticular osteoarthritis
--- NOTE | ~2021-10-09 | XR_ITS ---
XR forearm RT 2V DATE: 10/09/2021 15:52 INDICATION: Fracture of distal radius TECHNIQUE: AP and lateral views of right forearm COMPARISON: None FINDINGS: There is diffuse osteopenia. Normal alignment at the elbow and wrist joints. There is a mildly comminuted intra-articular distal radial nondisplaced fracture, with dorsal inclina tion of distal radial articular surface. Fracture at the tip of the ulnar styloid process. Prominent osteoarthritic change at the first carpometacarpal joint. IMPRESSION: Nondisplaced mildly comminuted intra-articular distal radial fracture with dorsal inclina tion of distal radial articular surface Fracture of tip of ulnar styloid process Osteopenia Reviewed, dictated and finalized at location B. IMPRESSION: Nondisplaced mildly comminuted intra-articular distal radial fractu re with dorsal inclination of distal radial articular surface Fracture of tip of ulnar styloid process Osteopenia
--- NOTE | ~2021-10-09 | XR_ITS ---
XR hand RT min 3V DATE: 10/09/2021 15:52 INDICATION: Distal radial fracture TECHNIQUE: 3 views of right hand COMPARISON: None FINDINGS: There is osteopenia. Comminuted intra-articular fracture of the distal radius and fracture of the ulnar styloid process ar e again noted. Triangular cartilage calcification. Severe osteophytic change of the first carpometacarpal joint and osteoarthritic change involving firs t and second metacarpophalangeal joints in particular in addition to multiple interphalangeal joints. IMPRESSION: Comminuted intra-articular fracture of distal radius Fracture of ulnar styloid process Osteopenia Polyarticular osteoarthritis Reviewed, dictated and finalized at location B.
--- NOTE | ~2021-10-09 | CT_ITS ---
EXAMINATION: CT brain wo con DATE: 10/09/2021 15:59 INDICATION: Confusion TECHNIQUE: Computed tomography (CT) of the head was performed without intravenous contrast. The mA wa s adjusted according to patient size. Iterative reconstruction technique was employed. Exam dose: 68 1.00 mGy-cm total exam DLP. COMPARISON: 12/28/2020 CT brain FINDINGS: There is central and cortical and cerebellar moderately prominent atrophy. Bilateral carotid siphon internal carotid artery calcifications. There is nonspecific diminished atte nuation of the cerebral white matter, likely due to chronic small vessel ischemic changes. No intracranial mass lesion or hemorrhage or cerebrovascular accident is detected. No midline shift o r mass effect effect. No subdural or epidural hematoma. No fracture or bone destruction of the cranial vault. The mastoid air cells and included paranasal sinuses are unremarkable. IMPRESSION: Moderately prominent central and cortical cerebral and cerebellar atrophy Cerebral atherosclerosis and chronic small vessel ischemic changes of the cerebral white matter No acute intracranial finding Reviewed, dictated and finalized at [facility]. Reviewed, dictated and finalized at location B. IMPRESSION: Moderately prominent central and cortical cerebral and cerebellar atrophy Cerebral atherosclerosis and chronic small vessel ischemic changes of the cereb ral white matter No acute intracranial finding
[2021-10-09 15:11] LABS: Basophils Absolute Auto 0.02 K/mm3 (0.00-0.10); Basophils Percent Auto 0.3 % (0.0-1.0); Eosinophils Absolute Auto 0.14 K/mm3 (0.02-0.50); Eosinophils Percent Auto 1.8 % (1.0-6.0); Hematocrit 46.4 % (35.0-42.0); Hemoglobin 15.3 g/dL (11.7-13.8); Immature Granulocyte Absolute 0.04 K/mm3 (0.00-0.00); Immature Granulocyte Percent A 0.5 % (0.0-0.0); Lymphocytes Absolute Auto 1.39 K/mm3 (1.10-4.50); Lymphocytes Percent Auto 17.4 % (18.0-42.0); Mean Corpuscular Hemoglobin 30.2 pg (27.0-31.0); Mean Corpuscular Volume 91.5 fL (78.0-102.0); Mean Platelet Volume 10.9 fl (9.2-11.8); Monocytes Absolute Auto 0.88 K/mm3 (0.10-0.90); Neutrophils Absolute Auto 5.5 K/mm3 (1.7-7.2); Platelet Count Result 212 K/mm3 (150-420); Red Blood Count 5.07 M/mm3 (4.20-5.40)
[2021-10-09 15:16] LABS: Add Urine Microscopic? YES; Appearance Urine Clear (Clear); Bilirubin Urine Negative (Negative); Blood Urine 3+ (Negative); Color Urine Brown (Yellow); Glucose Urine UA Negative (Negative); Ketones Urine Negative (Negative); Leukocyte Esterase Ur 2+ (Negative); Nitrate Urine Negative (Negative); Protein Urine 2+ (Negative); Specific Grav Ur 1.025 (1.010-1.020)
[2021-10-09 15:30] LABS: Bacteria Urine Trace /hpf; Mucus Urine Few /lpf; Squamous Epithelial Cell Urine Few /hpf (Few)
[2021-10-09 16:13] LABS: Alanine Aminotransferase 41 U/L (14-59); Alkaline Phosphatase 99 U/L (46-116); Anion Gap 9 mmol/L (8-16); Aspartate Amino Transferase 24 U/L (15-37); Bilirubin,Total 0.7 mg/dL (0.00-1.00); Blood Urea Nitrogen 20 mg/dL (7-18); Calcium 9.9 mg/dL (8.5-10.1); Carbon Dioxide 30 mmol/L (21-32); Chloride 104 mmol/L (98-108); Estimated Glomerular Filt Rate > 60; Free T3 2.26 pg/mL (2.18-3.98); Free T4 Free Thyroxine 1.96 ng/dL (0.76-1.46); Glucose 104 mg/dL (70-99); Osmolality Calculated 298 mOsm/kg (285-295); Potassium 3.7 mmol/L (3.5-5.1); Sodium 143 mmol/L (136-145); Total Protein 7.2 g/dL (6.4-8.2); Vitamin B12 900 pg/mL (193-986)
== END 2021-10-09 14:45 | disposition home or self-care (01) ==
PROVIDERS: PCP Internal Medicine; Visit Provider Internal Medicine
DX: R05.9 Cough, unspecified (principal); R41.0 Disorientation, unspecified; S52.501D Unspecified fracture of the lower end of right radius, subsequent encounter for closed fracture with routine healing; N39.0 Urinary tract infection, site not specified
CPT/HCPCS: 36415; 70450; 71046; 73090; 73110; 73130; 80053; 81001; 82607; 84439; 84443; 84481; 85025; 87086; 87088

== ENCOUNTER 2021-11-15 08:32 | Outpatient (CLI) | payer MEDICARE, SELFPAY ==
--- NOTE | ~2021-11-15 | XR_ITS ---
EXAMINATION: XR forearm RT 2V INDICATION: Right radius fracture follow-up TECHNIQUE: Two views of the right radius are obtained. COMPARISON: 10/09/2021 FINDINGS: A cast has been applied which obscures fine osseous detail. There is an intra-articular fra cture of the distal radius which appears unchanged in alignment. There appears to be developing calci fied callus at the fracture site. No additional fracture is identified. There is advanced osteoarthri tis at the first carpometacarpal joint. Alignment at the elbow is normal. IMPRESSION: 1. Casted intra-articular fracture of the distal radius with probable early calcified callus formatio n. Reviewed, dictated and finalized at location B. IMPRESSION: 1. Casted intra-articular fracture of the distal radius with probable early megan cified callus formation.
== END 2021-11-15 08:33 | disposition home or self-care (01) ==
LOC: CHSIMG 08:33
PROVIDERS: PCP Internal Medicine; Visit Provider Internal Medicine
DX: S52.501D Unspecified fracture of the lower end of right radius, subsequent encounter for closed fracture with routine healing (principal)
CPT/HCPCS: 73090

== ENCOUNTER 2021-12-18 13:57 | Outpatient (CLI) | payer MEDICARE, SELFPAY ==
--- NOTE | ~2021-12-18 | XR_ITS ---
EXAMINATION: XR forearm RT 2V DATE: 12/18/2021 14:34 INDICATION: Right radial fracture with limited range of motion TECHNIQUE: AP an lateral views of the right forearm were obtained. COMPARISON: 11/15/2021 FINDINGS: Healing fracture of the distal right radius with dorsal impaction resulting in dorsal tilt of the dis kevyn articular surface. Still ununited minimally displaced avulsion fracture involving the tip of the ulnar styloid process. Normal alignment with mild osteoarthritis at the right elbow joint. No right e lbow joint effusion. Severe osteoarthritis at the first carpal metacarpal joint and mild osteoarthrit is at the wrist and triscaphe joints. No new fractures identified. IMPRESSION: 1. Healing dorsally impacted fracture of the distal right radius with with persistent dorsal tilt of the distal articular surface. 2. Still ununited minimally displaced avulsion fracture involving the tip of the ulnar styloid proces s. 3. Mild osteoarthritis at the right elbow with no joint effusion or acute osseous abnormality. Reviewed, dictated and finalized at location B. IMPRESSION: 1. Healing dorsally impacted fracture of the distal right radius with with pers istent dorsal tilt of the distal articular surface. 2. Still ununited minimally displaced avulsion fracture involving the tip of th e ulnar styloid process. 3. Mild osteoarthritis at the right elbow with no joint effusion or acute osseo us abnormality.
== END 2021-12-18 13:58 | disposition home or self-care (01) ==
LOC: CHSIMG 14:00
PROVIDERS: PCP Internal Medicine; Visit Provider Internal Medicine
DX: S52.91XD Unspecified fracture of right forearm, subsequent encounter for closed fracture with routine healing (principal)
CPT/HCPCS: 73090